=== PATIENT | male | born 1985 | race Caucasian/White ===

== ENCOUNTER 2022-08-24 22:29 | Emergency (ER) | payer BC ==
[2022-08-24] MEDS ORDERED: diphenhydrAMINE 50 MG/ML SDV IVPUSH ONE (23:06)
[2022-08-24 23:38] VITALS: BP 164/106; PULSE 86
== END 2022-08-25 00:32 | disposition home or self-care (01) ==
LOC: DL.ED 22:29
DX: T78.1XXA Other adverse food reactions, not elsewhere classified, initial encounter (principal); R07.89 Other chest pain; Z91.013 Allergy to seafood; Z90.49 Acquired absence of other specified parts of digestive tract
CPT/HCPCS: 36415; 80053; 83605; 84484; 85025; 93005; 96374; 99285-25; J1200